=== PATIENT | female | born 1975 ===

== ENCOUNTER 2018-06-05 18:45 | Inpatient (IN) | payer OTHER ==
[2018-06-05] MEDS: QUEtiapine FUMARATE 200 MG TAB PO SCH (22:34)
[2018-06-05] MEDS: LORazepam 1 MG TAB PO PRN (22:36)
[2018-06-06] MEDS: LORazepam 1 MG TAB PO PRN ×3 (04:15→19:59)
[2018-06-06] MEDS: ACETAMINOPHEN 325 MG TAB PO PRN ×2 (04:15→11:05)
[2018-06-06] MEDS: NICOTINE POLACRILEX 2 MG GUM B PRN ×4 (07:37→18:03)
--- NOTE | 2018-06-06 08:10 | ASMTCMCOM ---
CM Note CM Note Notes: CC met ct. to develop MTP. Ct. presented as guarded and somewhat paranoid and disorganized. She reported that she was admitted to [facility] from 05/14 to 05/28. Ct. signed TESSIE for [facility], her psychiatrist Dr. Valery Garcia and her therapist Mike Weaver. Date Signed: 06/06/2018 08:09 AM Electronically Signed By:Fara Grey
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
[2018-06-06] MEDS: busPIRone 10 MG TAB PO SCH ×2 (08:51→19:57)
[2018-06-06] MEDS ORDERED: QUEtiapine FUMARATE 200 MG TAB PO SCH (09:00)
[2018-06-06] MEDS: HALOPERIDOL 2 MG TAB PO PRN (13:53)
--- NOTE | 2018-06-06 16:23 | PDHOSCONS ---
History and Physical - Chief Complaint Anxiety - History of Present Illness Shakila Rubalcava is a 42 yo F with a PMHx of asthma, bipolar, schizoaffective who is currently on M1 Hold. Patient reports that she was supposed to move earlier in the month but was unable to. She has a hx of asthma which she uses an albuterol inhaler for which she uses a few times a month. She currently denies any SOB, CP, n/v, f/c, d/c, edema, palpitations. History Information - Allergies/Home Medication List Allergies/Adverse Reactions: fluoxetine Allergy (Uncoded 06/05/18 19:50) I have personally reviewed and updated: family history, medical history, social history, surgical history - Past Medical History asthma - Surgical History Reports: hysterectomy - Family History Positive for: non-pertinent - Social History Smoking Status: Current some day smoker Review of Systems Review of Systems: ROS: 10pt was reviewed & negative except for what was stated in HPI & below Physical Exam Physical Exam: Temp Pulse Resp BP Pulse Ox 36.5 C 82 14 95/64 L 92 06/06/18 06:00 06/06/18 06:00 06/06/18 06:00 06/06/18 06:00 06/06/18 06:00 Constitutional: no apparent distress Eyes: PERRL Ears, Nose, Mouth, Throat: moist mucous membranes Cardiovascular: regular rate and rhythym Respiratory: no respiratory distress, clear to auscultation Gastrointestinal: No distension Skin: normal color Musculoskeletal: full muscle strength Neurologic: AAOx3 Psychiatric: anxious Lab Data & Imaging Review Hemoglobin A1c 6.3 % (4.0-6.0) H 06/06/18 03:10 Estim Average Glucose 134 mg/dL (68-126) H 06/06/18 03:10 Triglycerides 51 mg/dL (35-135) 06/06/18 03:10 Cholesterol 143 mg/dL (140-200) 06/06/18 03:10 Cholesterol Risk Factr 0.5 (0.2-1.0) 06/06/18 03:10 LDL Cholesterol, Calc 85 mg/dL (70-100) 06/06/18 03:10 LDL Risk Factor 0.6 (0.2-1.0) 06/06/18 03:10 VLDL Cholesterol 10 mg/dL (8-25) 06/06/18 03:10 Non-HDL Cholesterol 95 mg/dL (90-129) 06/06/18 03:10 HDL Cholesterol 48 mg/dL (40-95) 06/06/18 03:10 LDL/HDL Ratio 1.77 RATIO (1.00-3.22) 06/06/18 03:10 Cholesterol/HDL Ratio 2.98 RATIO (1.00-4.44) 06/06/18 03:10 Assessment & Plan Assessment: Schizoaffective disorder, bipolar type (Chronic) - Management per primary psychiatric team Asthma - Reports using albuterol inhaler, no signs of current exacerbation - Will order albuterol PRN Patient is cleared medically for further evaluation and treatment of psychiatric conditions.
[2018-06-06] MEDS: QUEtiapine FUMARATE 200 MG TAB PO SCH (19:57)
[2018-06-07] MEDS: LORazepam 1 MG TAB PO PRN ×3 (05:25→20:01)
[2018-06-07] MEDS: ACETAMINOPHEN 325 MG TAB PO PRN ×2 (05:25→14:03)
--- NOTE | 2018-06-07 06:18 | SOAPPROG ---
SOAP Progress Note Assessment/Plan: Assessment: Schizoaffective Disorder, Bipolar Type, current psychosis, notable paranoid delusions, disorganized thought process, did not sleep well last night (2 hours) . No improvement noted (see subjective/objective note). Patient is not safe to discharge at this time as patient continues to exhibit signs of psychosis, and express psychosis symptoms. Patient requires continued inpatient care because of current psychosis, and requires inpatient level of care to stabilize in order to no longer be gravely disabled due to mental illness. Patient exhibits persistent inability to perform essential function due to psychosis. Patient is unable to attend to ADLs appropriately and patient is unable to communicate her basic needs. Patients support system has inability to manage functional impairment at lower level of care. Patient requires higher level of support and support needs to be in place prior to patients discharge. Patient could benefit from continued inpatient hospitalization for crisis stabilization , safety, and medication evaluation. Plan: 1. Psychotropic medications: After reviewing options, risks, and benefits patient agrees to continue current medications, and agrees to increase Seroquel to 400 mg po QD to continue to titrate to outpatient dose of 400 mg po QD and 600 mg po QHS. No other medication changes at this time as more time is needed to determine ongoing tolerability and efficacy. Plan is to continue to observe patient for response and side effects from medications, and ongoing monitoring and evaluation. 2. Review with patient informed consent and recommendations for psychotropic medication treatment listed below 3. Labs: no additional labs at this time 4. Therapy: continue milieu and group therapy 5. Further investigation including gathering information from patients relatives and review of past case records to inform treatment plan. 6. Safety/Wellness plan and follow-up outpatient appointments to be established prior to discharge. Next steps are for patient to meet with primary care nurse practitioner to plan a safe discharge plan and establish outpatient services for ongoing treatment. 7. Confer with inpatient treatment team regarding treatment plan. 8. Psychosocial stressors addressed through case packer and sealer 9. Legal status: M1 10. Consider discharge next week if patient is in stable condition, safe, and has a safe discharge plan. PSYCHOTROPIC MEDICATION TREATMENT INFORMED CONSENT and RECOMMENDATIONS: Review nature of condition, diagnosis, and prognosis. Review nature and purpose of psychotropic medication treatment. Review type of psychotropic medications being ordered. Review risk and benefits of psychotropic medication treatment. Review probable length of time patient will need to take medications. Review risk and benefits of not undergoing psychotropic medication treatment. Review alternative treatments to psychotropic medications. Review psychotropic medications contraindications, drug-drug interactions, side effects, and importance of reporting any side effects to a psychiatric provider or nurse during inpatient hospitalization, and upon discharge to patients psychiatric outpatient provider, primary care provider, or other health healthcare administration intern. Review importance of asking a nurse, psychiatric provider, or primary care provider any questions or problems concerning the psychotropic medications. Verify patient understands the information that has been provided, and understands, accepts, and agrees to psychotropic medications. Review patients safety plan and importance of patient to report to staff while hospitalized if patient is ever a danger to self/others, or unable to care for self, and upon discharge, the importance for patient to contact [facility] or [facility], or go to the nearest emergency room, if patient is ever a danger to self/others, or unable to care for self. Recommend that upon discharge patient establish medication management treatment with a psychiatric provider, establishes routine therapy appointments, and follow-up with primary care provider. Verify patient understands and agrees to these recommendations. 06/07/18 06:17 Subjective: Following up with patient for evaluation of psychosis, brittany, and safety. Patient states, "I am really good. Here are the numbers for my doctors and my . My doctor is upset in the way I got here." Patient reports no side effects from current medications, and agrees to continue current medications. Patient agrees to increase Seroquel AM dose to 400 mg. Objective: Vital Signs Temp Pulse Resp BP Pulse Ox 36.5 C 82 14 95/64 L 92 06/06/18 06:00 06/06/18 06:00 06/06/18 06:00 06/06/18 06:00 06/06/18 06:00 NURSING REPORT: Consulted with nursing for update on patients progress in treatment. Nurses report patient is engaged in treatment, is attending some groups; slept 2 hours; expresses the following psychiatric symptoms: paranoid delusions; exhibits the following psychiatric symptoms: anxious, disorganized, delusional, labile; is agreeable to medications as prescribed with no report of side effects, no s/s of EPS/akathisia, and denies SI/HI, denies A/V hallucinations, and reports delusions. MSE: The patient is a well-nourished female looking stated chronological age. Attire is appropriate dress is hospital casual. Grooming status is appropriate. Ambulation is independent. Gait is normal and coordinated. Posture is normal. Eye contact is appropriate. Motor activity is appropriate with purposeful, organized, coordinated movements; with no involuntary movements. Attitude is cooperative. Patient appears distracted and does not relate well to this interviewer. Language production is spontaneous. R/R/V normal. Articulation is clear. Patient reports mood as okay with constricted, flat and incongruent affect. Patients thought process is disorganized, non- linear and illogical. Patient does not report suicidal/homicidal thoughts, ideas, or plans. Patient denies auditory, visual hallucinations. Patient reports paranoid delusions. Patient does not appear to be attending to internal stimuli. Patients attention and concentration are poor. Patient is oriented to person, place, time. Patients insight is poor. Patients judgment is poor. - Time Spent With Patient Time Spent With Patient: 15 minutes, met with patient individually. - Pending Discharge Pending Discharge Within 24 Hours: No Pending Discharge Within 48 Hours: No ICD10 Worksheet Patient Problems: Problems Problem Status Onset Nicotine dependence Acute Schizoaffective disorder, bipolar type Chronic
--- NOTE | 2018-06-07 07:16 | ASMTCMCOM ---
CM Note CM Note Notes: Ct. requested to speak with CC. She continues to presents as disorganized. However, she is very neatly groomed. Ct. reported that her visited her last night and that the plan is to have her stay with him for a few days after discharge. Ct. reported that she is from her and that they are not living together. She said that it is difficult for her to stay with him because she becomes paranoid thinking that he is cheating on her. Ct. spoke at length about her routine at home. She carries with her lists of phone numbers of her family members. She complained about not getting her medications on the same schedule as at home and CC promised to look into it. Date Signed: 06/07/2018 07:16 AM Electronically Signed By:Fara Grey
[2018-06-07] MEDS: QUEtiapine FUMARATE 200 MG TAB PO SCH ×2 (07:36→19:59)
[2018-06-07] MEDS: NICOTINE POLACRILEX 2 MG GUM B PRN ×2 (07:37→14:04)
[2018-06-07] MEDS: busPIRone 10 MG TAB PO SCH ×2 (07:37→19:59)
[2018-06-07] MEDS: HALOPERIDOL 2 MG TAB PO PRN ×2 (07:43→14:07)
--- NOTE | 2018-06-07 14:16 | PDMN ---
Medical Necessity Medical necessity: Pt meets IP criteria per & ELENO [id number]; est los >2 mn for eval/tx of schizoaffective disorder, bipolar type; pt on M1 hold due to being a danger to others & is gravely disabled due to underlying mental illness ; admit for further monitoring, safety, crisis stabilization & med management; per H&P & order 06/05/18
[2018-06-08] MEDS: ACETAMINOPHEN 325 MG TAB PO PRN ×3 (00:22→15:26)
[2018-06-08] MEDS: NICOTINE POLACRILEX 2 MG GUM B PRN ×2 (00:22→07:02)
[2018-06-08] MEDS: HALOPERIDOL 2 MG TAB PO PRN (00:29)
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
[2018-06-08] MEDS: busPIRone 10 MG TAB PO SCH ×2 (08:24→20:53)
[2018-06-08] MEDS: QUEtiapine FUMARATE 200 MG TAB PO SCH ×2 (08:24→20:53)
--- NOTE | 2018-06-08 12:48 | ASMTCMCOM ---
CM Note CM Note Notes: Pt. reports her stomach hurting, adding it may be due to the patient swallowing her Nicotine gum. CC asked pt. to not swallow her gum and CC informed RN. Pt. reports "trying to eat healthier". Pt. stated during her previous hospitalization, she lost a lot of weight, adding she would like to weight herself today. Pt. stated she has a grandchild due in November. Pt. reports she slept "so good". Pt. shared about her children and her ex partner. Pt. stated after discharging from the previous hospital, and prior to her admission to this hospital, pt. reported she "was in a dark place again". Pt. reports getting enough to eat. Pt. stated [facility] staff have "treated me with the up most respect. Write that down". Pt. reports no issues with her current medications, adding the "dosage is fine". Pt. requested to take Haldol at bedtime. Pt. reports she "want to go home". Pt. denied SI, HI, AVH and paranoia. Pt. presents as alert, labile, crying at times, tangential, and cooperative. Staff report pt. sleeping 8.5 hours and being medication compliant. CC to discuss with pt. continuing to work with [facility] (if possible) or to change the pt's providers to [facility]. Date Signed: 06/08/2018 12:48 PM Electronically Signed By:Adina Zayas
[2018-06-08] MEDS: LORazepam 1 MG TAB PO PRN ×2 (15:26→21:49)
[2018-06-09] MEDS: ACETAMINOPHEN 325 MG TAB PO PRN ×4 (05:16→21:56)
[2018-06-09] MEDS: LORazepam 1 MG TAB PO PRN ×3 (05:43→23:03)
[2018-06-09] MEDS: QUEtiapine FUMARATE 200 MG TAB PO SCH ×2 (08:51→20:58)
[2018-06-09] MEDS: NICOTINE POLACRILEX 2 MG GUM B PRN (08:51)
[2018-06-09] MEDS: NICOTINE 14 MG/24 HR PATCH TD SCH (08:51)
[2018-06-09] MEDS: busPIRone 10 MG TAB PO SCH ×2 (08:52→20:58)
--- NOTE | 2018-06-09 15:12 | ASMTCMCOM ---
CM Note CM Note Notes: Pt. reports feeling "truely blessed". Pt. stated she slept "very good". Pt. reports getting "too much" to eat. Pt. reports no issues with her current medications. Pt. stated her stomach still hurts, even though she is no longer swallowing her nicorette gum. Pt. stated her "whole body" hurts. Pt. stated she "want to open my own assisted living". Pt. stated she wants CC to meet with her family at noon, adding she will be discharging at noon. CC stated she may be unavailable. Pt. gave CC contact information for pt's mother and grandmother. Pt. denied SI, HI, AVH and paranoia. Pt. presents as alert, calm, disorganized about her discharge, good eye contact, groomed, complimentary, and cooperative. Staff report pt. sleeping 4 hours and being medication compliant. Pt. has an appointments with Dr. Garcia on 08/06/18 @10:30am and with Dr. Mike Weaver, therapist, on 06/28/18 at 2:30pm. Weekday CC to try to reschedule appointments for sooner, if possible. Date Signed: 06/09/2018 03:11 PM Electronically Signed By:Adina Zayas
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
[2018-06-10] MEDS: MAGNESIUM HYDROXIDE 30 ML UDCUP PO PRN (03:15)
[2018-06-10] MEDS: NICOTINE 14 MG/24 HR PATCH TD SCH ×3 (08:15→14:35)
[2018-06-10] MEDS: busPIRone 10 MG TAB PO SCH ×3 (08:15→20:51)
[2018-06-10] MEDS: QUEtiapine FUMARATE 200 MG TAB PO SCH ×3 (08:16→20:51)
[2018-06-10] MEDS: ACETAMINOPHEN 325 MG TAB PO PRN (09:46)
--- NOTE | 2018-06-10 15:23 | ASMTBHFAM ---
Notes Note: Notes: CC left voice mail with the patient's to discuss follow up care including whether or not the patient would benefit from transferring services, rescheduling follow up, etc. The patient's visited the patient on the unit; he reported that the patient will likely return to [place] and live with his sister when she discharges. He explained that they have a hx of not living together. He stated, "We have our moments and now is one of them." Prior to her admission and his mother moving to [place], she was living with his mother in [place]. He would like the patient to continue with her current providers at [facility]. Date Signed: 06/10/2018 10:55 AM Electronically Signed By:Aisha Leigh
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
[2018-06-11] MEDS: QUEtiapine FUMARATE 200 MG TAB PO SCH ×2 (00:06→08:06)
[2018-06-11] MEDS: LORazepam 1 MG TAB PO PRN ×3 (00:06→18:25)
[2018-06-11] MEDS: busPIRone 10 MG TAB PO SCH ×3 (00:07→20:27)
[2018-06-11] MEDS: MAGNESIUM HYDROXIDE 30 ML UDCUP PO PRN (00:48)
[2018-06-11] MEDS: ACETAMINOPHEN 325 MG TAB PO PRN ×2 (00:49→08:45)
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
[2018-06-11] MEDS: NICOTINE 14 MG/24 HR PATCH TD SCH (08:05)
[2018-06-11] MEDS ORDERED: HALOPERIDOL 2 MG TAB PO ONE (09:26)
--- NOTE | 2018-06-11 14:28 | ASMTCMCOM ---
CM Note CM Note Notes: The patient is increasingly labile and irritable. She perseverates on discharge, previous providers, family members, and somatic complaints. This marketing copywriter connected with Dr. Garcia's nurse to discuss treatment and follow up care. The nurse agreed to reschedule the patient's / appointment earlier, following hospital discharge. We exchanged provider information and will coordinate collaboration between inpatient and outpatient providers. Date Signed: 06/11/2018 12:35 PM Electronically Signed By:Aisha Leigh
--- NOTE | 2018-06-11 15:05 | ASMTBHFAM ---
Notes Note: Notes: The patient's , Leonardo, was notified regarding the hospital move scheduled for June 12. [facility] Inpatient Behavioral Health is moving from [address] [facility] to [address] [place] [address]. She didn't have questions, concerns, or request additional information at this time. Date Signed: 06/11/2018 01:44 PM Electronically Signed By:Aisha Leigh
[2018-06-11] MEDS ORDERED: HALOPERIDOL 2 MG TAB PO SCH (21:00)
[2018-06-11] MEDS ORDERED: QUEtiapine FUMARATE 200 MG TAB PO SCH (21:00)
[2018-06-11] MEDS ORDERED: HALOPERIDOL 5 MG TAB PO ONE (22:30)
[2018-06-11] MEDS ORDERED: LORazepam 1 MG TAB PO ONE (22:30)
[2018-06-11] MEDS ORDERED: QUEtiapine FUMARATE 300 MG TAB ONE (23:58)
[2018-06-12] MEDS ORDERED: HALOPERIDOL LACT 5 MG/ML INJ IM PRN (00:04)
[2018-06-12] MEDS ORDERED: LORazepam 2 MG/ML INJ IM PRN (00:05)
[2018-06-12] MEDS: LORazepam 1 MG TAB PO ONE ×2 (00:06→00:27)
[2018-06-12] MEDS: QUEtiapine FUMARATE 300 MG TAB PO ONE ×2 (00:07→00:28)
[2018-06-12] MEDS ORDERED: LORazepam 1 MG TAB PO PRN (06:13)
[2018-06-12] MEDS: QUEtiapine FUMARATE 200 MG TAB PO SCH ×2 (07:20→22:23)
[2018-06-12] MEDS: HALOPERIDOL 2 MG TAB PO SCH ×2 (07:20→22:23)
[2018-06-12] MEDS: busPIRone 10 MG TAB PO SCH ×2 (07:20→22:23)
[2018-06-12] MEDS: NICOTINE 14 MG/24 HR PATCH TD SCH ×2 (07:21→07:26)
[2018-06-12] MEDS ORDERED: LORazepam 2 MG/ML INJ ONE (07:51)
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
[2018-06-12] MEDS ORDERED: LORazepam 1 MG TAB ONE ×3 (09:15→16:16)
--- NOTE | 2018-06-12 11:38 | ASMTCMCOM ---
CM Note CM Note Notes: Call Dr. Valery Lloyd's nurse line in regards to client. Dr. Lloyd noted that she would like to be involved in client's care (out-patient). CC invited to call into rounds on (06/14/18) between the 10am and 10:30am. Another goal would be to have the current provider, out-patient provider and treatment team on same page regarding continued care as well as any expectations. Date Signed: 06/12/2018 11:36 AM Electronically Signed By:Michael Diaz
--- NOTE | 2018-06-12 12:38 | ASMTCMCOM ---
CM Note CM Note Notes: That patient moved from [address] [place] [address] [place] [address] with [facility] Inpatient Behavioral Health. The patient didn't have questions or concerns at this time. The patient maintains persistent requests to discharge. She continues to present as disorganized and delusional, although redirectable. The patient reported that she no longer requires hospitalization. Date Signed: 06/12/2018 12:37 PM Electronically Signed By:Aisha Leigh
[2018-06-12] MEDS ORDERED: diphenhydrAMINE 50 MG CAP PO ONE (16:30)
[2018-06-12] MEDS ORDERED: LORazepam 2 MG/ML INJ IM ONE (16:30)
[2018-06-12] MEDS ORDERED: LORazepam 1 MG TAB PO ONE (16:30)
[2018-06-12] MEDS ORDERED: HALOPERIDOL 5 MG TAB PO ONE (16:30)
[2018-06-12] MEDS ORDERED: HALOPERIDOL LACT 5 MG/ML INJ IM ONE (16:30)
--- NOTE | 2018-06-12 22:31 | SOAPPROG ---
SOAP Progress Note Assessment/Plan: Assessment: Plan: Subjective: Called by RN to report patient's behavior has again deteriorated. Verbally and physically agitated, aggressive, unresponsive to verbal redirection. I ordered Emed of Haldol/Ativan/Benadryl. I spent 45" with her this afternoon due to agitation and she responded to me when she stated I was sent by her sister to be her friend. Remains very agitated and psychotic. Case reviewed with Aldo Koroma, [facility], pt's primary provider. Objective: Vital Signs Temp Pulse Resp BP Pulse Ox 37.3 C 82 12 126/73 H 95 06/12/18 21:30 06/12/18 21:30 06/12/18 21:30 06/12/18 21:30 06/12/18 21:30 ICD10 Worksheet Patient Problems: Problems Problem Status Onset Nicotine dependence Acute Schizoaffective disorder, bipolar type Chronic
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
[2018-06-13] MEDS: HALOPERIDOL 2 MG TAB PO SCH (08:27)
[2018-06-13] MEDS: QUEtiapine FUMARATE 200 MG TAB PO SCH ×2 (08:27→20:20)
[2018-06-13] MEDS: busPIRone 10 MG TAB PO SCH ×2 (08:27→20:18)
[2018-06-13] MEDS: NICOTINE 14 MG/24 HR PATCH TD SCH (09:02)
[2018-06-13] MEDS ORDERED: HALOPERIDOL 2 MG TAB PO SCH (11:03)
--- NOTE | 2018-06-13 16:21 | ASMTCMCOM ---
CM Note CM Note Notes: The patient participated in clinical treatment team rounds. She was engaged and appropriate. She did not have any questions. The patient continues to present as disorganized and delusional. The patient perseverates on discharge planning, is suspected of concealing medication, and was secluded overnight due to behavior. Date Signed: 06/13/2018 04:20 PM Electronically Signed By:Aisha Leigh
[2018-06-13] MEDS: HALOPERIDOL 5 MG TAB PO SCH (20:19)
[2018-06-13] MEDS: NICOTINE POLACRILEX 2 MG GUM B PRN (20:22)
--- NOTE | 2018-06-14 07:30 | SOAPPROG ---
SOAP Progress Note Assessment/Plan: Assessment: Schizoaffective Disorder, Bipolar Type, current psychosis, notable paranoid delusions, disorganized thought process. Less agitation and aggression noted. Patient responding to and tolerating higher doses of Haldol. Slight improvement noted (see subjective/objective note). Patient is not safe to discharge at this time as patient continues to exhibit signs of psychosis, and express psychosis symptoms. Patient requires continued inpatient care because of current psychosis, and requires inpatient level of care to stabilize in order to no longer be gravely disabled due to mental illness. Patient requires close monitoring (assault precautions). Patients concerned about patients impulsiveness. Patient has a 9 year old daughter whom she lives with and cares for. Patients concerned for daughters safety around patient in her current condition. He reported patient is able to care for daughter when stable and taking medications as prescribed. Patient exhibits persistent inability to perform essential function due to psychosis. Patient is unable to attend to ADLs appropriately and independently, and patient is unable to communicate her basic needs appropriately. Patients support system has inability to manage functional impairment at lower level of care. Patient requires higher level of support and support needs to be in place prior to patients discharge. Patient could benefit from continued inpatient hospitalization for crisis stabilization, safety, and medication evaluation. Plan: 1. Psychotropic medications: After reviewing options, risks, and benefits patient agrees to continue current medications. No other medication changes at this time as more time is needed to determine ongoing tolerability and efficacy. Patient responding to and tolerating higher doses of Haldol (5 mg po BID) and Seroquel 400 mg po QD and 600 mg po QHS. Will continue at these doses for acute stabilization. Plan is to continue to observe patient for response and side effects from medications, and ongoing monitoring and evaluation. 2. Review with patient informed consent and recommendations for psychotropic medication treatment listed below 3. Labs: no additional labs at this time 4. Therapy: continue milieu and group therapy 5. Further investigation including gathering information from patients relatives and review of past case records to inform treatment plan. 6. Safety/Wellness plan and follow-up outpatient appointments to be established prior to discharge. Next steps are for patient to meet with director of critical care to plan a safe discharge plan and establish outpatient services for ongoing treatment. 7. Confer with inpatient treatment team regarding treatment plan. 8. Psychosocial stressors addressed through child support case officer 9. Legal status: [facility] 10. Consider discharge next week if patient is in stable condition, safe, and has a safe discharge plan. PSYCHOTROPIC MEDICATION TREATMENT INFORMED CONSENT and RECOMMENDATIONS: Review nature of condition, diagnosis, and prognosis. Review nature and purpose of psychotropic medication treatment. Review type of psychotropic medications being ordered. Review risk and benefits of psychotropic medication treatment. Review probable length of time patient will need to take medications. Review risk and benefits of not undergoing psychotropic medication treatment. Review alternative treatments to psychotropic medications. Review psychotropic medications contraindications, drug-drug interactions, side effects, and importance of reporting any side effects to a psychiatric provider or nurse during inpatient hospitalization, and upon discharge to patients psychiatric outpatient provider, primary care provider, or other health cna caregiver. Review importance of asking a nurse, psychiatric provider, or primary care provider any questions or problems concerning the psychotropic medications. Verify patient understands the information that has been provided, and understands, accepts, and agrees to psychotropic medications. Review patients safety plan and importance of patient to report to staff while hospitalized if patient is ever a danger to self/others, or unable to care for self, and upon discharge, the importance for patient to contact [facility] or [facility], or go to the nearest emergency room, if patient is ever a danger to self/others, or unable to care for self. Recommend that upon discharge patient establish medication management treatment with a psychiatric provider, establishes routine therapy appointments, and follow-up with primary care provider. Verify patient understands and agrees to these recommendations. 06/14/18 07:29 Subjective: Following up with patient for evaluation of psychosis, brittany, and safety. Patient states, "I am doing well. I like it here better. The other hospital [place]; over [address] years old." Patient reports no side effects from current medications, and agrees to continue medications. Objective: Vital Signs Temp Pulse Resp BP Pulse Ox 37.1 C 101 H 14 120/65 92 06/14/18 04:30 06/14/18 04:30 06/14/18 04:30 06/14/18 04:30 06/14/18 04:30 MSE: The patient is a well-nourished female looking stated chronological age. Attire is appropriate dress is hospital casual. Grooming status is appropriate. Ambulation is independent. Gait is normal and coordinated. Posture is tense and threatening. Eye contact is inappropriate and avoided. Motor activity is appropriate with purposeful, organized, coordinated movements ; with no involuntary movements. Attitude is uncooperative. Patient appears distracted and does not relate well to this interviewer. Language production is spontaneous. Rate is pressured, latency of response is shortened with irritable tone; screaming. Articulation is clear. Tone is irritable. Patient reports mood as okay with inappropriate affect. Labile. Patients thought process is disorganized, non-linear and illogical. Patient does not report suicidal/homicidal thoughts, ideas, or plans. Patient denies auditory, visual hallucinations. Patient reports paranoid delusions. Patient does not appear to be attending to internal stimuli. Patients attention and concentration are poor. Patient is oriented to person, place, time. Patients insight is poor. Patients judgment is poor. - Time Spent With Patient Time Spent With Patient: 15 minutes, met with patient individually. - Pending Discharge Pending Discharge Within 24 Hours: No Pending Discharge Within 48 Hours: No ICD10 Worksheet Patient Problems: Problems Problem Status Onset Nicotine dependence Acute Schizoaffective disorder, bipolar type Chronic
[2018-06-14] MEDS: NICOTINE 14 MG/24 HR PATCH TD SCH (07:56)
[2018-06-14] MEDS: QUEtiapine FUMARATE 200 MG TAB PO SCH ×2 (08:30→20:04)
[2018-06-14] MEDS: HALOPERIDOL 5 MG TAB PO SCH ×2 (08:30→20:03)
[2018-06-14] MEDS: busPIRone 10 MG TAB PO SCH ×2 (08:30→20:03)
[2018-06-14] MEDS ORDERED: POLYETHYLENE GLYCOL 3350 17 GM PKT PO PRN (10:39)
[2018-06-14] MEDS: ALPRAZolam 0.5 MG TAB PO PRN (11:15)
[2018-06-14] MEDS: PREPARATION H 51 GM CRTUBE PR PRN (12:46)
--- NOTE | 2018-06-14 15:14 | ASMTCMCOM ---
CM Note CM Note Notes: This commercial loan underwriter assisted the patient in contact and leaving a VM for her traffic law attorney. The patient presents as labile, irritable, and cooperative. The patient demands to be discharged from inpatient care stating, "This place is classy but it is not for me. That is not my room. I have my own room at home. I need to go home." She explained that she is discharging multiple staff although she reported suspection that RNs are not actually "registered." The patient is refusing medications. Date Signed: 06/14/2018 03:12 PM Electronically Signed By:Aisha Leigh
--- NOTE | 2018-06-15 06:33 | SOAPPROG ---
SOAP Progress Note Assessment/Plan: Assessment: Schizoaffective Disorder, Bipolar Type, current psychosis, notably paranoid delusions, disorganized thought process. Less agitation and aggression noted. Patient responding to and tolerating higher doses of Haldol. Slight improvement noted (see subjective/objective note). Patient is not safe to discharge at this time as patient continues to exhibit signs of psychosis, and express psychosis symptoms. Patient requires continued inpatient care because of current psychosis, and requires inpatient level of care to stabilize in order to no longer be gravely disabled due to mental illness. Patient requires close monitoring (assault precautions). Patients concerned about patients impulsiveness. Patient has a 9 year old daughter whom she lives with and cares for. Patients concerned for daughters safety around patient in her current condition. He reported patient is able to care for daughter when stable and taking medications as prescribed. Patient exhibits persistent inability to perform essential function due to psychosis. Patient is unable to attend to ADLs appropriately and independently, and patient is unable to communicate her basic needs appropriately. Patients support system has inability to manage functional impairment at lower level of care. Patient requires higher level of support and support needs to be in place prior to patients discharge. Patient could benefit from continued inpatient hospitalization for crisis stabilization, safety, and medication evaluation. Plan: 1. Psychotropic medications: After reviewing options, risks, and benefits patient agrees to continue current medications. No other medication changes at this time as more time is needed to determine ongoing tolerability and efficacy. Patient responding to and tolerating higher doses of Haldol (5 mg po BID) and Seroquel 400 mg po QD and 600 mg po QHS. Will continue at these doses for acute stabilization. Plan is to continue to observe patient for response and side effects from medications, and ongoing monitoring and evaluation. 2. Review with patient informed consent and recommendations for psychotropic medication treatment listed below 3. Labs: no additional labs at this time 4. Therapy: continue milieu and group therapy 5. Further investigation including gathering information from patients relatives and review of past case records to inform treatment plan. 6. Safety/Wellness plan and follow-up outpatient appointments to be established prior to discharge. Next steps are for patient to meet with acute care assistant to plan a safe discharge plan and establish outpatient services for ongoing treatment. 7. Confer with inpatient treatment team regarding treatment plan. 8. Psychosocial stressors addressed through case sealer 9. Legal status: [facility] 10. Consider discharge next week if patient is in stable condition, safe, and has a safe discharge plan. PSYCHOTROPIC MEDICATION TREATMENT INFORMED CONSENT and RECOMMENDATIONS: Review nature of condition, diagnosis, and prognosis. Review nature and purpose of psychotropic medication treatment. Review type of psychotropic medications being ordered. Review risk and benefits of psychotropic medication treatment. Review probable length of time patient will need to take medications. Review risk and benefits of not undergoing psychotropic medication treatment. Review alternative treatments to psychotropic medications. Review psychotropic medications contraindications, drug-drug interactions, side effects, and importance of reporting any side effects to a psychiatric provider or nurse during inpatient hospitalization, and upon discharge to patients psychiatric outpatient provider, primary care provider, or other health care partner. Review importance of asking a nurse, psychiatric provider, or primary care provider any questions or problems concerning the psychotropic medications. Verify patient understands the information that has been provided, and understands, accepts, and agrees to psychotropic medications. Review patients safety plan and importance of patient to report to staff while hospitalized if patient is ever a danger to self/others, or unable to care for self, and upon discharge, the importance for patient to contact [facility] or [facility], or go to the nearest emergency room, if patient is ever a danger to self/others, or unable to care for self. Recommend that upon discharge patient establish medication management treatment with a psychiatric provider, establishes routine therapy appointments, and follow-up with primary care provider. Verify patient understands and agrees to these recommendations. 06/15/18 06:34 Subjective: Following up with patient for evaluation of psychosis, brittany, and safety. Patient states, "I am doing well. Would like to get out of here soon and see my . I wrote him a few love letters. Here they are." Patient reports no side effects from current medications, and agrees to continue medications. Objective: Vital Signs Temp Pulse Resp BP Pulse Ox 36.9 C 98 14 115/57 L 92 06/15/18 06:00 06/15/18 06:00 06/15/18 06:00 06/15/18 06:00 06/15/18 06:00 MSE: The patient is a well-nourished female looking stated chronological age. Attire is appropriate dress is hospital casual. Grooming status is appropriate. Ambulation is independent. Gait is normal and coordinated. Posture is normal and relaxed. Eye contact is appropriate. Motor activity is appropriate with purposeful, organized, coordinated movements; with no involuntary movements. Attitude is cooperative. Patient appears attentive and relates well to this interviewer. Language production is spontaneous. R/R/V normal. Articulation is clear. Tone is soft. Patient reports mood as okay with inappropriate and constricted affect. Patients thought process improved, fairly linear and logical. Disorganized at times. Patient does not report suicidal/homicidal thoughts, ideas, or plans. Patient denies auditory, visual hallucinations. Patient reports delusions. Patient does not appear to be attending to internal stimuli. Patients attention and concentration are fair. Patient is oriented to person, place, time. Patients insight is poor. Patients judgment is poor. - Time Spent With Patient Time Spent With Patient: 15 minutes, met with patient individually. - Pending Discharge Pending Discharge Within 24 Hours: No Pending Discharge Within 48 Hours: No ICD10 Worksheet Patient Problems: Problems Problem Status Onset Nicotine dependence Acute Schizoaffective disorder, bipolar type Chronic
[2018-06-15] MEDS: NICOTINE 14 MG/24 HR PATCH TD SCH (08:20)
[2018-06-15] MEDS: busPIRone 10 MG TAB PO SCH ×3 (11:27→20:40)
[2018-06-15] MEDS: HALOPERIDOL 5 MG TAB PO SCH ×3 (11:28→20:40)
[2018-06-15] MEDS: QUEtiapine FUMARATE 200 MG TAB PO SCH ×3 (11:28→20:40)
--- NOTE | 2018-06-15 12:55 | ASMTCMCOM ---
CM Note CM Note Notes: Pt. reports feeling "truly blessed". Pt. shared a sign she made for her daughter. Pt. reports sleeping "too good" adding she woke up twice during the night. Pt. reports she normally gets up around 5am. Pt. reports getting enough to eat, adding she is avoiding beef as she doesn't digest it well. Pt. denies any issues with her current medications. Pt. reports attending some groups. Pt. stated the unit is cold and she is in pain from her hemorrhoids. Pt. stated the denture cream here is "not good". Pt. stated she "can't do negative energy". Pt. denied SI, HI, AVH and paranoia. Pt. presents as alert, calm, polite, and cooperative. Staff report pt. sleeping 6.5 hours and refusing her medication this morning. Pt. has follow up appointments in [place] on 06/28/18 with her therapist, and 08/06/[address] Garcia Date Signed: 06/15/2018 12:55 PM Electronically Signed By:Adina Zayas
--- NOTE | 2018-06-15 14:39 | ASMTCMCOM ---
CM Note CM Note Notes: Pt asked to speak with CC. Pt. reports feeling "too medicated" adding she took her medication last night, and feels she should be allowed to leave. Pt. stated she is tired, but will not go to sleep. Pt. stated she is feels like she is in care home and "this is bull shit". Pt. stated she felt the staff was "playing me last night" when playing yakelin with her. Pt. stated she thinks her blood pressure is "spiking" but declined to give her vitals. Pt. appears more paranoid this afternoon, guarded and somewhat uncooperative. Date Signed: 06/15/2018 02:38 PM Electronically Signed By:Adina Zayas
[2018-06-15] MEDS: ACETAMINOPHEN 325 MG TAB PO PRN (18:53)
[2018-06-16] MEDS: NICOTINE POLACRILEX 2 MG GUM B PRN ×2 (01:27→08:09)
[2018-06-16] MEDS: ACETAMINOPHEN 325 MG TAB PO PRN ×3 (01:27→18:28)
[2018-06-16] MEDS: NICOTINE 14 MG/24 HR PATCH TD SCH (08:05)
[2018-06-16] MEDS: HALOPERIDOL 5 MG TAB PO SCH ×3 (09:11→22:54)
[2018-06-16] MEDS: QUEtiapine FUMARATE 200 MG TAB PO SCH ×3 (09:11→22:55)
[2018-06-16] MEDS: busPIRone 10 MG TAB PO SCH ×3 (09:12→22:54)
--- NOTE | 2018-06-16 16:18 | ASMTCMCOM ---
CM Note CM Note Notes: Pt. reports feeling "great". Pt. stated she slept "better than good". Pt. stated she is getting enough to eat and attending groups. Pt. reports no issues with her current medications. Pt. reports her only issues is "just my bottom", adding tylenol helps. Pt. stated she misses her dog. Pt. reports her goal is to "go home and relax". Pt. stated HOC will visit at noon. Pt. denied SI, HI, AVH and paranoia. CC asked if pt. will stay with family in [place] upon discharge, pt. stated no she will be going to her new apartment in [place]. Pt. presents as alert, calm, polite, friendly, groomed and cooperative. CC met with pt. later in the day to discuss ROIs, pt. was demanding, raising her voice, and somewhat agitated. Pt. appears to be negatively bonding with peer pt. Pt. has follow up appointments at [facility] on 06/28/18 and 08/06/18 Date Signed: 06/16/2018 04:18 PM Electronically Signed By:Adina Zayas
--- NOTE | 2018-06-16 18:24 | SOAPPROG ---
SOAP Progress Note Assessment/Plan: Assessment: Per Aldo Koroma's most recent note: Schizoaffective Disorder, Bipolar Type, current psychosis, notably paranoid delusions, disorganized thought process. Less agitation and aggression noted. Patient responding to and tolerating higher doses of Haldol. Slight improvement noted (see subjective/objective note). Patient is not safe to discharge at this time as patient continues to exhibit signs of psychosis, and express psychosis symptoms. Patient requires continued inpatient care because of current psychosis, and requires inpatient level of care to stabilize in order to no longer be gravely disabled due to mental illness. Patient requires close monitoring (assault precautions). Patients concerned about patients impulsiveness. Patient has a 9 year old daughter whom she lives with and cares for. Patients concerned for daughters safety around patient in her current condition. He reported patient is able to care for daughter when stable and taking medications as prescribed. Patient exhibits persistent inability to perform essential function due to psychosis. Patient is unable to attend to ADLs appropriately and independently, and patient is unable to communicate her basic needs appropriately. Patients support system has inability to manage functional impairment at lower level of care. Patient requires higher level of support and support needs to be in place prior to patients discharge. Patient could benefit from continued inpatient hospitalization for crisis stabilization, safety, and medication evaluation. Plan: 1. Psychotropic medications: After reviewing options, risks, and benefits patient agrees to continue current medications. No other medication changes at this time as more time is needed to determine ongoing tolerability and efficacy. Patient responding to and tolerating higher doses of Haldol (5 mg po BID) and Seroquel 400 mg po QD and 600 mg po QHS. Will continue at these doses for acute stabilization. Plan is to continue to observe patient for response and side effects from medications, and ongoing monitoring and evaluation. WEEKEND PLAN: 06/16/18 18:18 1. Patient very labile, irritable at time, pleasant at times. 2. Patient is extremely delusional stating she is "child of God" and likes to "make my own butter and chocolate chip cookies" without any context or point of reference. 3. Patient slept 3.5 hrs last night. 4. STC Subjective: Met with patient in day room. She is sitting at table coloring. She says she is in "good overrall health and mental state of mind." She tells she is "taking my meds as prescribed by Dr. Lloyd (her outpatient MD)." She tells MD that "whenever Dr. Lloyd or Camilo Weaver are seeing me, I can never see what they write on their screens...but when Dr. Everett sees me, I can always see what's she 's writing on her screen." MD asks patient to clarify what she means, but she is already talking about something else unrelated. She wants to show MD a stack of receipts her brought to her in hospital. MD has no idea why patient has these receipts. She wants MD to know, "I am a child of God...I'm not God." Objective: Vital Signs Temp Pulse Resp BP Pulse Ox 36.9 C 92 14 110/71 95 06/16/18 06:00 06/16/18 06:00 06/16/18 06:00 06/16/18 06:00 06/16/18 06:00 MSE: Affect: Elevated, labile Mood: "Great" TP: Disorganized, loose, illogical TC: Denies any SI/HI, still has delusions Insight/Judgment: Poor - Time Spent With Patient Time Spent With Patient: 25" - Pending Discharge Pending Discharge Within 24 Hours: No Pending Discharge Within 48 Hours: No ICD10 Worksheet Patient Problems: Problems Problem Status Onset Nicotine dependence Acute Schizoaffective disorder, bipolar type Chronic
[2018-06-17] MEDS: busPIRone 10 MG TAB PO SCH ×3 (09:05→21:30)
[2018-06-17] MEDS: NICOTINE 14 MG/24 HR PATCH TD SCH (09:06)
[2018-06-17] MEDS: QUEtiapine FUMARATE 200 MG TAB PO SCH ×3 (09:06→21:28)
[2018-06-17] MEDS: HALOPERIDOL 5 MG TAB PO SCH ×3 (09:06→21:30)
--- NOTE | 2018-06-17 14:05 | ASMTCMCOM ---
CM Note CM Note Notes: Pt. reports feeling "blessed". Pt. stated she is sleeping "way too much". Pt. stated she plans to have a spa day today, and will do her cousin's hair when pt. gets home. Pt. stated she "can't let nobody hold me down". Pt. reports getting "more than enough" to eat. Pt. reports attending groups. Pt. stated her medications "it's fine" adding this is the "best hospital, facility, whatever you call it". Pt. reports no issues while on the unit. Pt. stated she needs some coffee, a cigarette and "one of my cookies". Pt. stated her goal is "to go home to my family". Pt. stated she plans to write a book called "God saving a wrench like me". Pt. stated she wants to watch the news badly. Pt. denied SI, HI, AVH and paranoia. Pt. stated she wants to sign an TESSIE for her grandfather, but that staff won't give her any more. Pt. stated she is also not allowed any more stickers. Pt. presents as alert, mostly calm, good eye contact, lacking insight, somewhat guarded or evasive, and cooperative. Staff report pt. sleeping 4.5 hours and refusing her medications. Staff report they have no limited pt's access to ROIs, but that pt. is on top of the hour requests. Pt. has follow up appointments at [facility] on 06/28/18 and 08/26/18 Date Signed: 06/17/2018 02:05 PM Electronically Signed By:Adina Zayas
--- NOTE | 2018-06-17 18:27 | SOAPPROG ---
SOAP Progress Note Assessment/Plan: Assessment: Per Aldo Koroma's most recent note: Schizoaffective Disorder, Bipolar Type, current psychosis, notably paranoid delusions, disorganized thought process. Less agitation and aggression noted. Patient responding to and tolerating higher doses of Haldol. Slight improvement noted (see subjective/objective note). Patient is not safe to discharge at this time as patient continues to exhibit signs of psychosis, and express psychosis symptoms. Patient requires continued inpatient care because of current psychosis, and requires inpatient level of care to stabilize in order to no longer be gravely disabled due to mental illness. Patient requires close monitoring (assault precautions). Patients concerned about patients impulsiveness. Patient has a 9 year old daughter whom she lives with and cares for. Patients concerned for daughters safety around patient in her current condition. He reported patient is able to care for daughter when stable and taking medications as prescribed. Patient exhibits persistent inability to perform essential function due to psychosis. Patient is unable to attend to ADLs appropriately and independently, and patient is unable to communicate her basic needs appropriately. Patients support system has inability to manage functional impairment at lower level of care. Patient requires higher level of support and support needs to be in place prior to patients discharge. Patient could benefit from continued inpatient hospitalization for crisis stabilization, safety, and medication evaluation. Plan: 1. Psychotropic medications: After reviewing options, risks, and benefits patient agrees to continue current medications. No other medication changes at this time as more time is needed to determine ongoing tolerability and efficacy. Patient responding to and tolerating higher doses of Haldol (5 mg po BID) and Seroquel 400 mg po QD and 600 mg po QHS. Will continue at these doses for acute stabilization. Plan is to continue to observe patient for response and side effects from medications, and ongoing monitoring and evaluation. WEEKEND PLAN: 06/16/18 18:18 1. Patient very labile, irritable at time, pleasant at times. 2. Patient is extremely delusional stating she is "child of God" and likes to "make my own butter and chocolate chip cookies" without any context or point of reference. 3. Patient slept 3.5 hrs last night. 4. STC 06/17/18 18:26 1. Patient labile and agitated today. She was yelling and cursing at staff. 2. Patient refused Seroquel and Haldol last night. She has refused all meds, except nicotine gum today. 3. spoke at length with patient's , Ervin. He says she was diagnosed with schizoaffective disorder [facility]. She has been hospitalized numerous times in her life, starting after the of her first son at age 21 yo at [facility] in [place]. Ervin says he doesn't know what medications she's taken in past other than Seroquel and Haldol. 4. recommends patient take a mood stabilizer that is effective for brittany, such as [place], Depakote or Trileptal. also suggested trial of Abilify or Latuda as these are often more effective for patients with h/o brittany than Seroquel or Haldol. Patient is refusing to consider any new medications and refuses to take her current meds. Ervin tried to convince patient to take mood stabilizer, but she refused him as well. Ervin states he does not feel comfortable with patient returning home in this condition. He says his 9 yo daughter did not feel safe with patient at home after she was discharged from [facility] in May. 5. Ervin suggested patient might be willing to take new meds if her outpatient therapist, Mike Weaver, talked to her about it on phone. He also suggested patient might be willing to take advice from her BULL, Robles Garcia. 6. [facility] Subjective: Patient present extremely labile, aggressive today. She is yelling and cursing at staff. One of her peers is goading patient to refuse meds and reject efforts by staff to de-escalate patient when she becomes agitated. Patient was moved to another part of the unit in afternoon, and was calmer and more cooperative. Patient refused to take her medications last night and today. spoke at length with patient's , Ervin. He noted that patient has significant h/ o manic episodes. He reports she was hospitalized at [facility] in 2010 for psychosis and brittany. She was treated at [facility] [place] from 2010 to 2013. Ervin says patient would spend money impulsively and get family into so much debt they weren't sure they could pay their bills. He also reports she would have mood swings, pressured speech, racing thoughts, hyperactivity, fantasies about becoming rich in business, decreased sleep and reckless behavior. Ervin says she was diagnosed by her outpatient psychiatrist with schizoaffective disorder, but he doesn't know what medications she was prescribed. He says he has tried to "stay out" of her treatment and let her and her provider make decisions about meds. explained the difference between antipsychotic medications and mood stabilizers. Ervin says patient has been decompensating for several months. He didn't feel she was "stable" enough to leave [place] [facility] when she was discharged in 05/22. He doesn't think the Seroquel and Haldol have been enough for her over past 2 months. MD suggested a mood stabilizer such as lithium or VPA, or a trial of Abilify or Latuda, but patient refused all medications. said, "she won't listen to me either." He suggested talking to Mike Weaver, patient's therapist at [facility]. Ervin says "she usually listens to him." Ervin also suggested patient will take advice from her BULL, Robles Garcia, a local rail director. Objective: Vital Signs Temp Pulse Resp BP Pulse Ox 37.1 C 87 13 114/73 95 06/17/18 11:41 06/17/18 11:41 06/17/18 11:41 06/17/18 11:41 06/17/18 11:41 MSE: Affect: Labile, elevated, angry Mood: "I'm fine" Hostile, angry at times TP: Disorganized, loose TC: Denies any SI/HI, remains paranoid, delusional Insight/Judgment: Poor - Time Spent With Patient Time Spent With Patient: 25" - Pending Discharge Pending Discharge Within 24 Hours: No Pending Discharge Within 48 Hours: No ICD10 Worksheet Patient Problems: Problems Problem Status Onset Nicotine dependence Acute Schizoaffective disorder, bipolar type Chronic
[2018-06-17] MEDS: ALPRAZolam 0.5 MG TAB PO PRN (21:19)
--- NOTE | 2018-06-18 07:10 | SOAPPROG ---
SOAP Progress Note Assessment/Plan: Assessment: Schizoaffective Disorder, Bipolar Type, current psychosis, notable paranoid delusions, disorganized thought process, labile, and aggressive. Medication non -adherence. No improvement noted (see subjective/objective note). Patient refusing medications. Patient is not safe to discharge at this time as patient continues to exhibit signs of psychosis, and express psychosis symptoms. Patient requires continued inpatient care because of current psychosis, and requires inpatient level of care to stabilize in order to no longer be gravely disabled due to mental illness. Patient requires close monitoring (assault precautions). Patients concerned about patients impulsiveness. Patient has a 9 year old daughter whom she lives with and cares for. Patients concerned for daughters safety around patient in her current condition. He reported patient is able to care for daughter when stable and taking medications as prescribed. Patient exhibits persistent inability to perform essential function due to psychosis. Patient is unable to attend to ADLs appropriately and independently, and patient is unable to communicate her basic needs appropriately. Patients support system has inability to manage functional impairment at lower level of care. Patient requires higher level of support and support needs to be in place prior to patients discharge. Patient could benefit from continued inpatient hospitalization for crisis stabilization , safety, and medication evaluation. Plan: 1. Psychotropic medications: Patient refusing medications. MD reported from weekend patient refused medications Monday night and Monday. 2. Review with patient informed consent and recommendations for psychotropic medication treatment listed below 3. Labs: no additional labs at this time 4. Therapy: continue milieu and group therapy 5. Further investigation including gathering information from patients relatives and review of past case records to inform treatment plan. 6. Safety/Wellness plan and follow-up outpatient appointments to be established prior to discharge. Next steps are for patient to meet with healthcare interpreter to plan a safe discharge plan and establish outpatient services for ongoing treatment. 7. Confer with inpatient treatment team regarding treatment plan. 8. Psychosocial stressors addressed through pillowcase maker 9. Legal status: ST 10. Consider discharge next week if patient is in stable condition, safe, and has a safe discharge plan. PSYCHOTROPIC MEDICATION TREATMENT INFORMED CONSENT and RECOMMENDATIONS: Review nature of condition, diagnosis, and prognosis. Review nature and purpose of psychotropic medication treatment. Review type of psychotropic medications being ordered. Review risk and benefits of psychotropic medication treatment. Review probable length of time patient will need to take medications. Review risk and benefits of not undergoing psychotropic medication treatment. Review alternative treatments to psychotropic medications. Review psychotropic medications contraindications, drug-drug interactions, side effects, and importance of reporting any side effects to a psychiatric provider or nurse during inpatient hospitalization, and upon discharge to patients psychiatric outpatient provider, primary care provider, or other health career services director. Review importance of asking a nurse, psychiatric provider, or primary care provider any questions or problems concerning the psychotropic medications. Verify patient understands the information that has been provided, and understands, accepts, and agrees to psychotropic medications. Review patients safety plan and importance of patient to report to staff while hospitalized if patient is ever a danger to self/others, or unable to care for self, and upon discharge, the importance for patient to contact [facility] or [facility], or go to the nearest emergency room, if patient is ever a danger to self/others, or unable to care for self. Recommend that upon discharge patient establish medication management treatment with a psychiatric provider, establishes routine therapy appointments, and follow-up with primary care provider. Verify patient understands and agrees to these recommendations. 06/18/18 07:12 Subjective: Following up with patient for evaluation of psychosis, brittany, and safety. Patient states, "I am okay. Having a good time here." Patient reports she is not taking medications as prescribed, and states, "I don't need them. Not going to take them anymore." Objective: Vital Signs Temp Pulse Resp BP Pulse Ox 36.9 C 95 14 140/76 H 94 06/18/18 00:26 06/18/18 00:26 06/18/18 00:26 06/18/18 00:26 06/18/18 00:26 MSE: The patient is a well-nourished female looking stated chronological age. Attire is appropriate dress is casual. Grooming status is appropriate. Ambulation is independent. Gait is normal and coordinated. Posture is normal and relaxed. Eye contact is appropriate. Motor activity is appropriate with purposeful, organized, coordinated movements; with no involuntary movements. Attitude is uncooperative. Patient appears distractible and disinterested, and does not relate well to this interviewer. Language production is spontaneous. R/R/V normal. Articulation is clear. Tone is soft. Patient reports mood as okay with expansive and inappropriate affect. Patients thought process tangential, disorganized, illogical, and non-linear. Patient does not report suicidal/homicidal thoughts, ideas, or plans. Patient denies auditory, visual hallucinations. Patient reports delusions. Patient does not appear to be attending to internal stimuli. Patients attention and concentration are poor. Patient is oriented to person, place, time. Patients insight is poor. Patients judgment is poor. MD REPORT FROM WEEKEND: Labile and aggressive. Refused all medications on Monday night and Monday. [place] TEAM: Discuss pursuing COM. - Time Spent With Patient Time Spent With Patient: 15 minutes, met with patient individually. - Pending Discharge Pending Discharge Within 24 Hours: No Pending Discharge Within 48 Hours: No ICD10 Worksheet Patient Problems: Problems Problem Status Onset Nicotine dependence Acute Schizoaffective disorder, bipolar type Chronic
[2018-06-18] MEDS: HALOPERIDOL 5 MG TAB PO SCH ×2 (08:54→19:47)
[2018-06-18] MEDS: NICOTINE 14 MG/24 HR PATCH TD SCH (08:54)
[2018-06-18] MEDS: busPIRone 10 MG TAB PO SCH ×2 (08:54→19:47)
[2018-06-18] MEDS: QUEtiapine FUMARATE 200 MG TAB PO SCH ×2 (08:55→19:47)
--- NOTE | 2018-06-18 12:46 | ASMTCMCOM ---
CM Note CM Note Notes: Pt. reports her goal is to buy $10 gifts from the [employer] throughout the year and than at Angella time, deliver those gifts with her daughter to [facility]. Pt. reports feeling "blessed". Pt. stated she "didn't" sleep, stating she "don't need to take that medication". Pt. reports getting enough to eat and attending groups. Pt. reports not taking her medications today. Pt. denied SI, HI, AVH and paranoia. Pt. attended treatment team planning this morning. Pt. presents as alert, calm, polite, good eye contact, groomed, lacking insight, and cooperative. Staff report pt. sleeping 0.5 hours and refusing all medications. Pt. has follow up appointments on 06/28/18 and 08/06/18 at [facility]. Date Signed: 06/18/2018 12:41 PM Electronically Signed By:Adina Zayas
[2018-06-18] MEDS: ALBUTEROL 60 PUFFS/8 GM MDI IH PRN (21:50)
[2018-06-18] MEDS ORDERED: LORazepam 2 MG/ML INJ IM PRN (22:49)
[2018-06-18] MEDS ORDERED: OLANZapine 10 MG/2 ML VIAL IM PRN (22:49)
[2018-06-19] MEDS: NICOTINE POLACRILEX 2 MG GUM B PRN ×7 (04:10→19:12)
--- NOTE | 2018-06-19 06:16 | SOAPPROG ---
SOAP Progress Note Assessment/Plan: Assessment: Schizoaffective Disorder, Bipolar Type, current psychosis, notable paranoid delusions, disorganized thought process, labile, and agitation. Medication non- adherence. No improvement noted (see subjective/objective note). Patient refusing medications. Patient is not safe to discharge at this time as patient continues to exhibit signs of psychosis, and express psychosis symptoms. Patient requires continued inpatient care because of current psychosis, and requires inpatient level of care to stabilize in order to no longer be gravely disabled due to mental illness. Patient requires close monitoring (assault precautions). Patients concerned about patients impulsiveness. Patient has a 9 year old daughter whom she lives with and cares for. Patients concerned for daughters safety around patient in her current condition. He reported patient is able to care for daughter when stable and taking medications as prescribed. Patient exhibits persistent inability to perform essential function due to psychosis. Patient is unable to attend to ADLs appropriately and independently, and patient is unable to communicate her basic needs appropriately. Patients support system has inability to manage functional impairment at lower level of care. Patient requires higher level of support and support needs to be in place prior to patients discharge. Patient could benefit from continued inpatient hospitalization for crisis stabilization , safety, and medication evaluation. Plan: 1. Psychotropic medications: Patient refusing medications. Patient agrees to discuss medications by conference call with this MACHINE STOPPAGE FREQUENCY CHECKER today at noon, and she agrees to follow her OP psychiatrists recommendations. 2. Review with patient informed consent and recommendations for psychotropic medication treatment listed below 3. Labs: no additional labs at this time 4. Therapy: continue milieu and group therapy 5. Further investigation including gathering information from patients relatives and review of past case records to inform treatment plan. 6. Safety/Wellness plan and follow-up outpatient appointments to be established prior to discharge. Next steps are for patient to meet with acute care nurse practitioner to plan a safe discharge plan and establish outpatient services for ongoing treatment. 7. Confer with inpatient treatment team regarding treatment plan. 8. Psychosocial stressors addressed through rn case manager hospice 9. Legal status: [facility] 10. Consider discharge next week if patient is in stable condition, safe, and has a safe discharge plan. PSYCHOTROPIC MEDICATION TREATMENT INFORMED CONSENT and RECOMMENDATIONS: Review nature of condition, diagnosis, and prognosis. Review nature and purpose of psychotropic medication treatment. Review type of psychotropic medications being ordered. Review risk and benefits of psychotropic medication treatment. Review probable length of time patient will need to take medications. Review risk and benefits of not undergoing psychotropic medication treatment. Review alternative treatments to psychotropic medications. Review psychotropic medications contraindications, drug-drug interactions, side effects, and importance of reporting any side effects to a psychiatric provider or nurse during inpatient hospitalization, and upon discharge to patients psychiatric outpatient provider, primary care provider, or other health care specialist. Review importance of asking a nurse, psychiatric provider, or primary care provider any questions or problems concerning the psychotropic medications. Verify patient understands the information that has been provided, and understands, accepts, and agrees to psychotropic medications. Review patients safety plan and importance of patient to report to staff while hospitalized if patient is ever a danger to self/others, or unable to care for self, and upon discharge, the importance for patient to contact [facility] or [facility], or go to the nearest emergency room, if patient is ever a danger to self/others, or unable to care for self. Recommend that upon discharge patient establish medication management treatment with a psychiatric provider, establishes routine therapy appointments, and follow-up with primary care provider. Verify patient understands and agrees to these recommendations. 06/19/18 06:14 Subjective: Following up with patient for evaluation of psychosis, brittany, and safety. Patient states, "I am sorry about last night, but I am not going to take that medicine anymore." Patient agrees to meet for conference call with this MACHINE STOPPAGE FREQUENCY CHECKER and her outpatient psychiatrist today at 1200 to discuss medication recommendations. Patient agrees to follow her OP psychiatrist's medication recommendations. Objective: Vital Signs Temp Pulse Resp BP Pulse Ox 37.0 C 97 16 133/72 H 93 06/18/18 23:37 06/18/18 23:37 06/18/18 23:37 06/18/18 23:37 06/18/18 23:37 MSE: The patient is a well-nourished female looking stated chronological age. Attire is appropriate dress is casual. Grooming status is appropriate. Ambulation is independent. Gait is normal and coordinated. Posture is normal and relaxed. Eye contact is appropriate. Motor activity is appropriate with purposeful, organized, coordinated movements; with no involuntary movements. Attitude is uncooperative. Patient appears distractible and disinterested, and does not relate well to this interviewer. Language production is spontaneous. R/R/V normal. Articulation is clear. Tone is soft. Patient reports mood as okay with expansive and inappropriate affect. Patients thought process tangential, disorganized, illogical, and non-linear. Patient does not report suicidal/homicidal thoughts, ideas, or plans. Patient denies auditory, visual hallucinations. Patient reports delusions. Patient does not appear to be attending to internal stimuli. Patients attention and concentration are poor. Patient is oriented to person, place, time. Patients insight is poor. Patients judgment is poor. - Time Spent With Patient Time Spent With Patient: 15 minutes, met with patient individually. - Pending Discharge Pending Discharge Within 24 Hours: No Pending Discharge Within 48 Hours: No ICD10 Worksheet Patient Problems: Problems Problem Status Onset Nicotine dependence Acute Schizoaffective disorder, bipolar type Chronic
[2018-06-19] MEDS: HALOPERIDOL 5 MG TAB PO SCH (07:48)
[2018-06-19] MEDS: busPIRone 10 MG TAB PO SCH ×2 (07:48→19:12)
[2018-06-19] MEDS: NICOTINE 14 MG/24 HR PATCH TD SCH (07:50)
[2018-06-19] MEDS: QUEtiapine FUMARATE 200 MG TAB PO SCH (07:51)
[2018-06-19] MEDS ORDERED: PALIPERIDONE 3 MG TAB.ER PO ONE ×2 (12:08→14:45)
[2018-06-19] MEDS ORDERED: DIVALPROEX ER 500 MG TAB PO ONE ×2 (12:08→14:45)
--- NOTE | 2018-06-19 13:06 | ASMTCMCOM ---
CM Note CM Note Notes: Pt. reports "not doing too good" adding she was placed in seclusion last night. Pt. reports she "was trying to go home". Pt. stated she doesn't know what to do to get discharge, adding she has been trying to stay calm. Pt. reports speaking with HOC, who stated he is going to take the pt's daughter away from her. Pt. stated when placed in seclusion she "wanted to fight". Pt. reports no believing she was given Ativan, stating "didn't feel the meds". Pt. reports wanting staff to call her veneer sorter and tell him what is going on. Pt. stated she wanted to go to breakfast and finish speaking with CC later. Pt. had a meeting with PNP today to call pt's psychiatrist, Dr. Garcia, about encouraging pt. to take medications. Pt. presents as alert, upset, tearful at times, frustrated, lacking insight, and mostly cooperative. Staff report pt. sleeping 5.5 hours last night, refusing medications, attempting to elope three times, and calling 911 today. Pt. has follow up appointments with Srii WINCHESTER on 06/28/18 and 08/06/18. Date Signed: 06/19/2018 01:05 PM Electronically Signed By:Adina Zayas
--- NOTE | 2018-06-19 16:00 | ASMTCMCOM ---
CM Note CM Note Notes: The patient continues to request discharge. She was calm and appropriate while interacting with this typewriter ribbon winder. The patient requested CC to observe the reported blood in her stool due to hemorrhoids; nursing staff notified. The patient discussed how to treat hemorrhoids and the story of one of her children. The patient reported that she is refusing to take medication. She was recently moved from Zone 1 to Zone 2 due to escalating behavior. Date Signed: 06/19/2018 03:57 PM Electronically Signed By:Aisha Leigh
[2018-06-19] MEDS: ALBUTEROL 60 PUFFS/8 GM MDI IH PRN (16:02)
[2018-06-19] MEDS: ALPRAZolam 0.5 MG TAB PO PRN (19:12)
[2018-06-20] MEDS: ALBUTEROL 60 PUFFS/8 GM MDI IH PRN ×3 (04:12→19:18)
[2018-06-20] MEDS: NICOTINE POLACRILEX 2 MG GUM B PRN ×7 (04:12→21:41)
--- NOTE | 2018-06-20 06:04 | SOAPPROG ---
SOAP Progress Note Assessment/Plan: Assessment: Schizoaffective Disorder, Bipolar Type, current psychosis (R/O brittany), notable disorganized thought process, this morning presents hypertalkative, hyperactive , and distractible. Medication non-adherence (yesterday was first day patient has taken medications as prescribed since Monday). No improvement noted (see subjective/objective note). Patient is not safe to discharge at this time. Patient has refused medications for several days, she did take medications as prescribed yesterday afternoon. Patient requires close monitoring (assault precautions). Patient's again voiced his concern yesterday for patient' s current condition and her inability to care for her 9 year old daughter and herself. Patients concerned about patients impulsiveness. Patient has a 9 year old daughter whom she lives with and cares for. Patients concerned for daughters safety around patient in her current condition. He reported patient is able to care for daughter and herself when stable and taking medications as prescribed. Patient exhibits persistent inability to perform essential function due to psychosis. Patient is unable to attend to ADLs appropriately and independently, and patient is unable to communicate her basic needs appropriately. Patients support system has inability to manage functional impairment at lower level of care. Patient requires higher level of support and support needs to be in place prior to patients discharge. Patient could benefit from continued inpatient hospitalization for crisis stabilization , safety, and medication evaluation. Plan: 1. Psychotropic medications: Continue current medications. Based on patient history of refusing medications, if patient refuses medications again, will purse court-ordered medications. 2. Review with patient informed consent and recommendations for psychotropic medication treatment listed below 3. Labs: no additional labs at this time 4. Therapy: continue milieu and group therapy 5. Further investigation including gathering information from patients relatives and review of past case records to inform treatment plan. 6. Safety/Wellness plan and follow-up outpatient appointments to be established prior to discharge. Next steps are for patient to meet with caretaker resort to plan a safe discharge plan and establish outpatient services for ongoing treatment. 7. Confer with inpatient treatment team regarding treatment plan. 8. Psychosocial stressors addressed through outpatient case manager 9. Legal status: [facility] 10. Consider discharge next week if patient is in stable condition, safe, and has a safe discharge plan. PSYCHOTROPIC MEDICATION TREATMENT INFORMED CONSENT and RECOMMENDATIONS: Review nature of condition, diagnosis, and prognosis. Review nature and purpose of psychotropic medication treatment. Review type of psychotropic medications being ordered. Review risk and benefits of psychotropic medication treatment. Review probable length of time patient will need to take medications. Review risk and benefits of not undergoing psychotropic medication treatment. Review alternative treatments to psychotropic medications. Review psychotropic medications contraindications, drug-drug interactions, side effects, and importance of reporting any side effects to a psychiatric provider or nurse during inpatient hospitalization, and upon discharge to patients psychiatric outpatient provider, primary care provider, or other health post acute care registered nurse. Review importance of asking a nurse, psychiatric provider, or primary care provider any questions or problems concerning the psychotropic medications. Verify patient understands the information that has been provided, and understands, accepts, and agrees to psychotropic medications. Review patients safety plan and importance of patient to report to staff while hospitalized if patient is ever a danger to self/others, or unable to care for self, and upon discharge, the importance for patient to contact [facility] or [facility], or go to the nearest emergency room, if patient is ever a danger to self/others, or unable to care for self. Recommend that upon discharge patient establish medication management treatment with a psychiatric provider, establishes routine therapy appointments, and follow-up with primary care provider. Verify patient understands and agrees to these recommendations. 06/20/18 06:04 Subjective: Following up with patient for evaluation of psychosis, brittany, and safety. Patient states, "I am doing well. Just up now, and have a lot of stuff to do." Patient reports taking Depakote ER 1,500 mg and Invega 6 mg yesterday afternoon, reports no side effects, and agrees to continue current medications. Objective: Vital Signs Temp Pulse Resp BP Pulse Ox 37.1 C 80 16 117/67 95 06/19/18 17:02 06/19/18 17:02 06/18/18 23:37 06/19/18 17:02 06/19/18 17:02 MSE: The patient is a well-nourished female looking stated chronological age. Attire is appropriate dress is casual. Grooming status is appropriate. Ambulation is independent. Gait is normal and coordinated. Posture is normal and relaxed. Eye contact is appropriate. Motor activity is appropriate with purposeful, organized, coordinated movements; with no involuntary movements. Attitude is cooperative. Patient appears distractible, and does not relate well to this interviewer. Language production is spontaneous. R/R/V normal. Articulation is clear. Tone is soft. Patient reports mood as okay with expansive and inappropriate affect. Patients thought process disorganized, illogical, and non-linear. Patient does not report suicidal/homicidal thoughts , ideas, or plans. Patient denies auditory, visual hallucinations. Patient reports delusions. Patient does not appear to be attending to internal stimuli. Patients attention and concentration are poor. Patient is oriented to person, place, time. Patients insight is poor. Patients judgment is poor. - Time Spent With Patient Time Spent With Patient: 15 minutes, met with patient individually. - Pending Discharge Pending Discharge Within 24 Hours: No Pending Discharge Within 48 Hours: No ICD10 Worksheet Patient Problems: Problems Problem Status Onset Nicotine dependence Acute Schizoaffective disorder, bipolar type Chronic
[2018-06-20] MEDS: DIVALPROEX ER 500 MG TAB PO SCH (08:24)
[2018-06-20] MEDS: NICOTINE 14 MG/24 HR PATCH TD SCH ×2 (08:24→09:01)
[2018-06-20] MEDS: PALIPERIDONE 3 MG TAB.ER PO SCH (08:26)
[2018-06-20] MEDS: busPIRone 10 MG TAB PO SCH ×2 (08:26→21:37)
[2018-06-20] MEDS: MAG HYDROX/AL HYDROX/SIMETH 30 ML UDCUP PO PRN ×2 (09:01→19:17)
[2018-06-20] MEDS: MAGNESIUM HYDROXIDE 30 ML UDCUP PO PRN (09:01)
--- NOTE | 2018-06-20 16:12 | PDCONSULT ---
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 Patient states that her left wrist swelled up and began hurting after she punched the thick window. At this point time she says that the wrist is still mildly tender but she does have full range of motion there is minimal swelling. She has no decrease in president financial institution strength are pain with grasping or moving her wrist. Otherwise she denies any fevers chills nausea vomiting or other symptoms. He past medical history Asthma Past surgical history Bilateral tubal ligation Hysterectomy Social history Smokes tobacco and uses marijuana Family history Denied any significant family history Allergies She endorsed an allergy to citric acid Medications As noted in her medication reconciliation Review of systems Ten point review of systems is negative except as noted in HPI Examination Vitals; blood pressure 122/68, heart rate 83, respirations 13, oxygen saturation 93% on room air, temperature 36.7 degrees C Assessment plan 42-year-old female admitted to [facility] for psychiatric evaluation complaining of left wrist pain after punching a window Left wrist pain- examination reveals minimal tenderness to palpation with near full range of motion and mild swelling to the lateral wrist. Would advocate ice and NSAIDs. If Pain persists could obtain a plain film of her wrist but currently there does not appear to be any acute fracture Asthma- continue albuterol inhaler as needed Dispo- per psych.
[2018-06-20] MEDS: ACETAMINOPHEN 325 MG TAB PO PRN (19:17)
[2018-06-20] MEDS: ALPRAZolam 0.5 MG TAB PO PRN (21:40)
[2018-06-21] MEDS: NICOTINE POLACRILEX 2 MG GUM B PRN ×8 (03:24→21:07)
[2018-06-21] MEDS: ALBUTEROL 60 PUFFS/8 GM MDI IH PRN ×4 (03:24→21:08)
[2018-06-21] MEDS: ACETAMINOPHEN 325 MG TAB PO PRN ×4 (03:24→21:07)
[2018-06-21] MEDS: MAGNESIUM HYDROXIDE 30 ML UDCUP PO PRN ×2 (03:24→14:00)
[2018-06-21] MEDS: PREPARATION H 51 GM CRTUBE PR PRN ×2 (03:24→14:27)
--- NOTE | 2018-06-21 05:48 | SOAPPROG ---
SOAP Progress Note Assessment/Plan: Assessment: Schizoaffective Disorder, Bipolar Type, current psychosis (R/O brittany). Medication non-adherence (Monday was first day patient has taken medications as prescribed since Monday). R/O Bipolar I Disorder with mood congruent psychotic features. No improvement noted (see subjective/objective note). Patient is not safe to discharge at this time. Patient has refused medications for several days, and has now taken medications as prescribed for 2 consistent days (Monday and Monday). Patient requires close monitoring (assault precautions). Patients concerned about patients impulsiveness. Patient has a 9 year old daughter whom she lives with and cares for. Patients concerned for daughters safety around patient in her current condition. He reported patient is able to care for daughter when stable and taking medications as prescribed. Patient exhibits persistent inability to perform essential function due to psychosis. Patient is unable to attend to ADLs appropriately and independently, and patient is unable to communicate her basic needs appropriately. Patients support system has inability to manage functional impairment at lower level of care. Patient requires higher level of support and support needs to be in place prior to patients discharge. Patient could benefit from continued inpatient hospitalization for crisis stabilization , safety, and medication evaluation. Plan: 1. Psychotropic medications: Continue current medications. 2. Review with patient informed consent and recommendations for psychotropic medication treatment listed below 3. Labs: VPA level Monday morning 4. Therapy: continue milieu and group therapy 5. Further investigation including gathering information from patients relatives and review of past case records to inform treatment plan. 6. Safety/Wellness plan and follow-up outpatient appointments to be established prior to discharge. Next steps are for patient to meet with care companion to plan a safe discharge plan and establish outpatient services for ongoing treatment. 7. Confer with inpatient treatment team regarding treatment plan. 8. Psychosocial stressors addressed through clinical case manager 9. Legal status: [facility] 10. Consider discharge next week if patient is in stable condition, safe, and has a safe discharge plan. PSYCHOTROPIC MEDICATION TREATMENT INFORMED CONSENT and RECOMMENDATIONS: Review nature of condition, diagnosis, and prognosis. Review nature and purpose of psychotropic medication treatment. Review type of psychotropic medications being ordered. Review risk and benefits of psychotropic medication treatment. Review probable length of time patient will need to take medications. Review risk and benefits of not undergoing psychotropic medication treatment. Review alternative treatments to psychotropic medications. Review psychotropic medications contraindications, drug-drug interactions, side effects, and importance of reporting any side effects to a psychiatric provider or nurse during inpatient hospitalization, and upon discharge to patients psychiatric outpatient provider, primary care provider, or other health behavioral health care manager. Review importance of asking a nurse, psychiatric provider, or primary care provider any questions or problems concerning the psychotropic medications. Verify patient understands the information that has been provided, and understands, accepts, and agrees to psychotropic medications. Review patients safety plan and importance of patient to report to staff while hospitalized if patient is ever a danger to self/others, or unable to care for self, and upon discharge, the importance for patient to contact [facility] or [facility], or go to the nearest emergency room, if patient is ever a danger to self/others, or unable to care for self. Recommend that upon discharge patient establish medication management treatment with a psychiatric provider, establishes routine therapy appointments, and follow-up with primary care provider. Verify patient understands and agrees to these recommendations. 06/21/18 05:48 Subjective: Following up with patient for evaluation of psychosis, brittany, and safety. Patient states, "I am doing well. I have been taking my medications, and would really like to leave soon." Patient reports no side effects from current medications, and agrees to continue current medications. Objective: Vital Signs Temp Pulse Resp BP Pulse Ox 36.5 C 93 16 120/67 94 06/21/18 00:30 06/21/18 00:30 06/21/18 00:30 06/21/18 00:30 06/20/18 16:00 MSE: The patient is a well-nourished female looking stated chronological age. Attire is appropriate dress is casual. Grooming status is appropriate. Ambulation is independent. Gait is normal and coordinated. Posture is normal and relaxed. Eye contact is appropriate. Motor activity is appropriate with purposeful, organized, coordinated movements; with no involuntary movements. Attitude is cooperative. Patient appears attentive, and relates well to this interviewer. Language production is spontaneous. R/R/V normal. Articulation is clear. Tone is soft. Patient reports mood as okay with constricted affect. Patients thought process remains disorganized at times, presents with fairly linear and logical thought. Patient does not report suicidal/homicidal thoughts , ideas, or plans. Patient denies auditory, visual hallucinations. Patient reports delusions. Patient does not appear to be attending to internal stimuli. Patients attention and concentration are poor. Patient is oriented to person, place, time. Patients insight is poor. Patients judgment is poor. - Time Spent With Patient Time Spent With Patient: 15 minutes, met with patient individually. - Pending Discharge Pending Discharge Within 24 Hours: No Pending Discharge Within 48 Hours: No ICD10 Worksheet Patient Problems: Problems Problem Status Onset Nicotine dependence Acute Schizoaffective disorder, bipolar type Chronic
[2018-06-21] MEDS: busPIRone 10 MG TAB PO SCH ×2 (10:39→21:08)
[2018-06-21] MEDS: DIVALPROEX ER 500 MG TAB PO SCH (10:41)
[2018-06-21] MEDS: PALIPERIDONE 3 MG TAB.ER PO SCH (10:42)
[2018-06-21] MEDS: MAG HYDROX/AL HYDROX/SIMETH 30 ML UDCUP PO PRN (13:30)
--- NOTE | 2018-06-21 13:40 | ASMTCMCOM ---
CM Note CM Note Notes: The patient was cheerful and calm; observed eating breakfast. She hopes to discharge prior to [facility]; she has been moved to Zone 1 due to her improvement aeb decrease in acuity. The patient had a successful visit with family yesterday evening. She requested to make some phone calls, mentioned being "in police custody," and having group "off the unit" today. She has been medication adherent for two consecutive days. Date Signed: 06/21/2018 01:39 PM Electronically Signed By:Aisha Leigh
[2018-06-21] MEDS: NICOTINE 14 MG/24 HR PATCH TD SCH (14:48)
[2018-06-21] MEDS: ALPRAZolam 0.5 MG TAB PO PRN (21:13)
[2018-06-22] MEDS: NICOTINE POLACRILEX 2 MG GUM B PRN ×3 (04:49→13:44)
[2018-06-22] MEDS: busPIRone 10 MG TAB PO SCH (08:10)
[2018-06-22] MEDS: DIVALPROEX ER 500 MG TAB PO SCH (08:10)
[2018-06-22] MEDS: PALIPERIDONE 3 MG TAB.ER PO SCH (08:10)
[2018-06-22] MEDS: NICOTINE 14 MG/24 HR PATCH TD SCH (08:17)
[2018-06-22 09:22] VITALS: BP 124/71
[2018-06-22] MEDS: ACETAMINOPHEN 325 MG TAB PO PRN (09:48)
[2018-06-22] MEDS: ALPRAZolam 0.5 MG TAB PO PRN (09:48)
--- NOTE | 2018-06-22 13:10 | ASMTBHDC ---
Notes Note: Notes: Pt. reports "doing wonderful". Pt. reports sleeping "very good". Pt. stated she is getting enough to eat and attending groups. Pt. stated "love them" about her medications. Pt. reports "Aldo said I'm going home today". Pt. reports no issues while on the unit. Pt. reports she is able to get to her follow up appointments. Pt. stated she can fill and take her medications as prescribed. Pt. stated she would like a Good Rx card. Pt. denied SI, HI, AVH and paranoia. Pt. attending treatment team planning today and stated she will be returning to her place in [place]. Pt. presents as alert, calm, polite, friendly, groomed, and cooperative. Staff report pt. sleeping 7 hours and being medication compliant. Pt. has follow up appointments with Siri WINCHESTER on 06/28/18 and 08/06/18. Date Signed: 06/22/2018 01:09 PM Electronically Signed By:Adina Zayas
--- NOTE | 2018-06-22 15:37 | BDS ---
[f rep st] BEHAVIORAL HEALTH DISCHARGE SUMMARY REASON FOR ADMISSION: The patient was admitted involuntarily on an M1 hold. Patient admitted due to danger to others and gravely disabled due to mental illness. The patient reportedly had not been taking her medications as prescribed. Patient's was concerned about patient's ability to care for herself and her 9-year-old daughter. At time of admission, patient presented with disorganized thought process, had difficulty answering questions. The patient was admitted involuntarily for safety, crisis stabilization, and medication. ADMITTING DIAGNOSES: Schizoaffective disorder, bipolar type. ADMISSION PHYSICAL EXAM: Patient was seen on 06/06/2018m for history and physical consultation for medical clearance for inpatient psychiatric hospitalization and treatment. The patient was medically cleared for inpatient psychiatric hospitalization and treatment. For further details, please refer to hospitalist's history and physical consult note dated 06/06/2018. ADMISSION LABS: 1. Hemoglobin A1c was elevated at 6.3. 2. Lipid panel within normal limits. 3. Valproic acid level 73.0 after 3 days at the current dose of Depakote ER 1500 mg p.o. q day. MAJOR PROCEDURES OR TESTS: None. HOSPITAL COURSE: The most prominent symptoms and behaviors while the patient was here were disorganized thought process, disorganized behavior, reported paranoid delusions. Patient refused medications intermittently during early portion of hospitalization. Treatment modalities utilized were milieu and group therapy. Seroquel was started and titrated to 400 mg p.o. q. day and 600 mg p.o. q.h.s., was tolerated with no report of side effects and with poor response. Haldol was titrated to 5 mg p.o. b.i.d. to target ongoing psychosis symptoms, tolerated with no report of side effects and with continued poor response. Seroquel and Haldol were tapered and discontinued. Invega 6 mg p.o. daily was started to target ongoing mood and psychosis symptoms, was tolerated with no report of side effects and with good response. Depakote ER 1500 mg p.o. q. day was started to target mood symptoms, was tolerated with no report of side effects and good response. Valproic acid level prior to discharge was 73.0 at current dose. Xanax 0.5 mg po Q6HRS PRN was started to target anxiety and agitation, was tolerated with no report of side effects, and with good response. Buspar 10 mg po BID was continued to target anxiety, was tolerated with good response. Patient has improved considerably with no signs of psychiatric symptoms and no psychiatric symptoms expressed. Patient reports she has improved since admission, states to be in stable condition, feels safe to discharge, and she contracts for safety. Patients response to treatment was good. There were no adverse or unexpected results of treatment. The patient was safe throughout stay, active in treatment, engaged in groups, and was appropriate with staff. Patient met with treatment team prior to discharge to assess readiness to discharge and review discharge plan. The treatment team consensus is the patient in stable condition, has a safe discharge plan, and is ready to discharge today. CONDITION AT DISCHARGE: Patient is in stable condition and is no longer a danger to self or others, and is not gravely disabled due to mental illness. Patient is no longer in need of inpatient level of care, and can be safely and effectively treated within the community. The patients level of risk at time of discharge is low. MSE: The patient is casually dressed and with good hygiene , and looks stated age. Patient is sitting, posture is upright, and position is relaxed. Patient appears awake, alert, and responds appropriately and reasonably during interview. Patient is engaged, relates well to interviewer, and emotional facial expression is appropriate to situation and changes appropriately with topic. Patient is cooperative, makes comfortable eye contact , and movements are voluntary, deliberate, coordinated, and smooth and even with no inappropriate movements. Patient makes laryngeal sounds effortlessly and shares conversation appropriately; pace of conversation is appropriate, and stream of talking is fluent; articulation is clear and understandable; word choice is effortless and appropriate for education level; completes sentences, occasionally pausing to think; rate and volume are appropriate for interview and setting. Patient reports mood as euthymic. Patients affect is stable with full variable range, congruent with mood, and appropriate to speech and circumstances. Patient has linear and logical thinking, with no loose associations, tangential thought, thought blocking, concrete thinking, or any other signs of formal thought disorder. Patient denies suicidal and homicidal ideation, and denies hallucinations and delusions. Patient appears to be a reliable historian with sound judgement and good insight into current condition. Patient has no apparent dysfunction in recent or remote memory noted , and no evidence of gross cognitive dysfunction noted at any point during the interview. DISCHARGE DIAGNOSIS: Schizoaffective disorder, bipolar type. CURRENT MEDICATIONS: After reviewing options, risks, benefits with the patient , patient agrees to continue: 1. Depakote ER 1500 mg p.o. q. day. 2. Invega 6 mg p.o. q. day. 3. BuSpar 10 mg p.o. b.i.d. 4. Xanax 0.5 mg t.i.d. p.r.n. Patient requests prescriptions for the medications at time of discharge. Prescriptions for 30 days are provided. Prescriptions are reviewed with the patient at time of discharge to ensure accuracy. DISPOSITION: Patient left hospital independently and voluntarily with her . Plans to return home with her in [place], [place]. FOLLOWUP: background check coordinator reports the appropriate outpatient follow-up services have been established and outpatient appointments have been scheduled. The patient received written instructions with times and dates of outpatient follow-up appointments. The following follow-up recommendations were provided to the patient at discharge: Continue psychotropic medications as prescribed and attend appointments as scheduled. Report any side effects to a psychiatric outpatient provider, a primary care provider, or other health client care coordinator. Address any questions or problems concerning the psychotropic medications with a psychiatric outpatient provider, a primary care provider, or other health client care coordinator. Contact [facility] or [facility], or go to the nearest emergency room, if you are ever a danger to yourself/others, or unable to care for yourself. As soon as possible, establish a routine medication management treatment with a psychiatric provider, establish routine therapy appointments, and follow-up with a primary care provider. LEGAL COURSE: Patient was admitted on an M1 hold for involuntary inpatient psychiatric hospitalization and treatment. Patient was placed on a short-term certification during the course of her hospitalization. The patient discharged today independently and voluntarily, and short-term certification was terminated at time of discharge. ATTITUDE AT TIME OF DISCHARGE: The patients attitude was positive at time of discharge, and patient reports looking forward to discharging today. The patient reports she feels safe to discharge, is no longer a danger to herself or others, is in stable condition, and contracts for safety. Patient states she will continue medications as prescribed, and establish medication management treatment with an outpatient provider after discharge. Patient reports she understands the information that has been provided to her, and she understands, accepts, and agrees to psychotropic medications. Patient describes internal protective factors as the coping skills she has learned while hospitalized here, and she plans to continue to practice these coping skills after discharge. LABS AND RADIOLOGY STUDIES: There were no pending labs or studies at time of discharge. ADVANCED DIRECTIVES: There were no advanced directives on file and patient was full code during this hospitalization. The following psychotropic medication treatment informed consent and recommendations were provided to the patient at time of discharge. Patient reports she understands, accepts, and agrees to the information that has been provided. PSYCHOTROPIC MEDICATION TREATMENT INFORMED CONSENT and RECOMMENDATIONS: Review nature of condition, diagnosis, and prognosis. Review nature and purpose of psychotropic medication treatment. Review type of psychotropic medications being prescribed. Review risk and benefits of psychotropic medication treatment. Review probable length of time will need to take medications. Review risk and benefits of not undergoing psychotropic medication treatment. Review alternative treatments to psychotropic medications. Review psychotropic medications contraindications, side effects, and importance of reporting any side effects to a psychiatric provider, primary care provider, or other health client care coordinator. Review importance of her asking a psychiatric provider or primary care provider any questions or problems concerning the psychotropic medications. Review importance of reporting to a psychiatric provider, primary care provider, or other health client care coordinator if she plans to or becomes . Review safety plan and the importance to contact [facility] or [facility] , or go to the nearest emergency room, if ever a danger to yourself/others, or unable to care for yourself. Recommend upon discharge to establish routine medication management treatment with a psychiatric provider, establish routine therapy appointments, and follow-up with a primary care provider. Verify patient understands, accepts, and agrees to the information that has been provided. /[id number]/MODL MTDD
== END 2018-06-22 15:45 | disposition home or self-care (01) | DRG 885 ==
LOC: BBEH 18:45
PROVIDERS: ADMIT Psychiatry & Neurology Psychiatry; ATTEND Psychiatry & Neurology Psychiatry
DX: F25.0 Schizoaffective disorder, bipolar type (principal); T43.506A Underdosing of unspecified antipsychotics and neuroleptics, initial encounter; F12.90 Cannabis use, unspecified, uncomplicated; M25.532 Pain in left wrist; J45.909 Unspecified asthma, uncomplicated; Z72.0 Tobacco use
CPT/HCPCS: J1200; J1630; J2060